=== PATIENT | female | born 1960 | race Caucasian/White ===

== ENCOUNTER → 2016-12-31 | Outpatient (CLI) | payer OTHER ==
[~2016-12-31] MED LIST: CELEBREX PO; LOESTRIN FE 1.51 TAB PO; LORATADINE PO; SINGULAIR PO; ZOLOFT PO
--- NOTE | ~2016-12-31 | EKG ---
PATIENT: [facility] UNIT #: [id number] Ventricular Rate: 70 BPM Atrial Rate: 70 BPM P-R Interval: 166 ms QRS Duration: 84 ms Q-T Interval: 380 ms QTC Calculation(Bezet): 410 ms P Wil[place]: 64 degrees Calculated R Wil[place]: 62 degrees Calculated T Wil[place]: 66 degrees Diagnosis Line: Normal sinus rhythm Diagnosis Line: Normal ECG Diagnosis Line: No previous ECGs available Diagnosis Line: Confirmed by URIEL SPENCER MD ([id number]) on 01/02/2017 Diagnosis Line: 3:22:59 PM INTERPRETING MD: [id number]
[2016-12-31 10:36] LABS: MEAN CELL VOLUME 88.7 FL (83-96); MEAN CORPUSCULAR HEMOGLOBIN 30.2 PG (28-34); MEAN PLATELET VOLUME 7.9 FL (6.5-11.5); RED BLOOD COUNT 4.62 X10e (3.90-5.30); RED CELL DISTRIBUTION WIDTH 12.8 % (11.0-15.5); WHITE BLOOD COUNT 6.8 X10e3 (4.0-10.5)
[2016-12-31 10:56] LABS: INFLUENZA A NEG (NEG); INFLUENZA B NEG (NEG)
[2016-12-31 11:05] LABS: ALBUMIN SERUM 4.4 g/dL (3.5-5.0); BILIRUBIN,TOTAL 0.8 mg/dL (0.2-2.0); BUN/CREATININE RATIO 21.42; CALCIUM SERUM 9.4 mg/dL (8.4-10.2); CREATININE SERUM 0.7 mg/dL (0.6-1.4); GLOM FILT RATE Estimated 96.9 mL/min (>60); PROTEIN TOTAL SERUM 6.3 g/dL (6.0-8.3)
[2016-12-31 13:30] LABS: URINE APPEARANCE CLEAR; URINE BLOOD NEG (NEG); URINE COLOR ORANGE; URINE GLUCOSE NEG (NEG); URINE KETONE NEG (NEG); URINE LEUKOCYTE ESTERASE 1+ (NEG); URINE NITRATE POS (NEG); URINE PROTEIN NEG (NEG)
[2016-12-31 13:33] LABS: U HYALINE CASTS AUWI 0-2 /[LPF]; URBCS1 AUWI 0-2 /[HPF] (0-2); URINE BACTERIA AUWI NEG (NEGATIVE); URINE SQUAMOUS EPITHELIAL CELL NONE SEEN /[HPF]
[2016-12-31 13:36] LABS: URINE BILIRUBIN POS (NEG)
[2016-12-31 13:56] LABS: URINE SOURCE CLEAN CATCH
== END | disposition home or self-care (01) ==
LOC: CLAB 09:50
PROVIDERS: Family Medicine
DX: E11.9 Type 2 diabetes mellitus without complications (principal); R55 Syncope and collapse; R53.83 Other fatigue; M79.1 Myalgia; M25.50 Pain in unspecified joint
CPT/HCPCS: 36415; 80053; 81003; 82607; 83036; 84443; 85027; 87086; 87804; 93005

== ENCOUNTER → 2017-01-06 | Outpatient (CLI) | payer SELFPAY | END | disposition home or self-care (01) | LOC: CNIV 14:40 | DX: Z13.6 Encounter for screening for cardiovascular disorders (principal) ==